=== PATIENT | male | born 1960 | race Caucasian/White ===

== ENCOUNTER 2022-07-30 09:43 | Outpatient (CLI) | payer OTHER ==
[2022-07-30 19:06] VITALS: BP 142/80
--- NOTE | 2022-07-30 19:06 | SLEEP CARE CONSULTATION ---
Information from patient questionnaire entered by Eriberto Isabel. I have reviewed and concur with the information entered by Eriberto Isabel. This document represents the service I personally performed and the decisions made by me, Teodoro Daley MD, [facility]. History of Present Illness Service Date and Time: 07/30/2022 0943 Reason for Visit: New patient Chief Complaint: reports: Insomnia, Other (UPDATE SUPPLIES) Date of Onset: 07/2019 Usual bedtime: 930-10PM Time it takes to fall asleep: 10-15MIN Snores at night: No Observed to quit breathing while asleep: No Sleeps alone due to snoring: No Number of times waking at night: 5-6 Reasons for waking at night: reports: Other (SPOUSE MOVING OR TUBING ISSUE ) Toss, Turn, or Twitch while sleeping: Yes Recalls having dreams: Yes Usually gets out of bed at: 3475-3146 Feels refreshed in the morning: Yes Morning headache: No Sleepy or fatigued during the day: Yes Ever fallen asleep while driving: No Takes day naps: No Prior sleep studies: Yes (2019 [facility]) Additional HPI information: IMPRESSION: 1. Obstructive Sleep Apnea-Hypopnea Syndrome, as suggested by history of loud and irregular snoring, observed cessation of breath while asleep, frequent awakenings during the night, nocturnal choking, unrefreshed sleep, and daytime hypersomnolence. Narrow oropharynx and obesity are common predisposing factors for obstructive sleep apnea-hypopnea syndrome. I recommend proceeding to polysomnography to confirm the diagnosis and to assess severity. If he has significant sleep disordered breathing, a manual CPAP titration study will also be performed to find the optimal treatment pressure. I informed the patient of what the sleep studies involve and after some discussion, he would like to first try a home sleep apnea test (HSAT) because he is claustrophobic and suspects that he will have trouble sleeping in a small room here. Plan: 1. Schedule a home sleep apnea test (HSAT) and return in 1 to 2 weeks after the study to discuss result and initiate therapy. 2. Avoid long distance driving or when feeling sleepy. 3. Avoid alcohol, sedative and muscle relaxant around bedtime. 4. Attempt to lose weight. - Parasomnia Symptoms Ever been unable to move upon waking from sleep: No Walks in sleep: No Talks in sleep: No Ever acted out dreams in sleep: No Ever felt weak in the knees when startled or emotional: No Bothered by creepy, crawly, restless sensations in legs: No Problems with memory or concentration: Yes Subjective Initial Alex Sleepiness Scale score: 5 (07/27/22) Past Medical History Past Medical History: reports: Hypertension, Anxiety, Other (HYPERLIPIDEMIA D3 DEFICIT ) Social History The patient's occupation is a [employer]. Patient is and lives in . Have you smoked in the past 12 months: No Years of smokin Quit date: 1994 Alcohol use: Yes Alcohol amount and frequency: 1-2 DAILY Caffeine use: Yes Caffeine amount and frequency: 1-2 MORNINGS ONLY Family History Family history of sleep disordered breathing: Yes Family Hx Sleep Apnea: Sibling: Snoring, Sleep apnea - Untreated Allergies and Home Medications Known drug allergies: No Drug allergies reviewed: Yes Home medication list reviewed: Yes Review of Systems Weight gain over past 5 years: 12-15 Cardiovascular: reports: high blood pressure Respiratory: denies: shortness of breath, wheeze, sputum production, chronic cough, other Gastrointestinal: denies: heartburn, difficulty swallowing, nausea, vomitting, diarrhea, abdominal pain, other Urinary: denies: incontinence, frequency, urgency, impotence, other Neurological: reports: head trauma Psychiatric: reports: anxiety, other (PTSD) Ear/Nose/Throat: reports: sinus problems, wisdom teeth removed Endocrine: denies: thyroid disease, history of goiter, sluggishness, too hot or cold, excessive thirst, increased appetite, increased urination, unexplained weakness, other Musculoskeletal: denies: joint pain, neck pain, back pain, joint swelling, muscle pain or cramping, mobility problems, other Immunologic: reports: sneezing Physical Exam Vital signs obtained and entered by: ERIBERTO Lopez MA Blood Pressure: 142/80 (LEFT ARM) Cuff size: regular Heart Rate: 69 O2 Saturation: 97 Height: 5 ft 11 in Weight: 183 lb 3.2 oz Body Mass Index: 25.5 BMI Classification: Overweight Neck circumference: 16.5 HEENT: No craniofacial malformation Nostrils: partially obstructed Turbinates: normal Septum: deviated right Mouth and throat: normal Soft palate: normal Hard palate: normal Uvula: normal Uvula visualization: 100% Mallampati Class I Tongue: normal in size Tonsils: small Chin and jaw: normal size and position Neck: normal w/o lymphadenopathy or thyromegaly Heart: regular rate and rhythm Lungs: clear bilaterally Extremities: no edema or clubbing Neurologic: intact Impression and Plan Visit Type: In Office Provider Statement: I spent 100% of the Face to Face Visit with the patient with greater than 50% spent counseling the patient and coordination of care.
== END 2022-07-30 09:44 | disposition home or self-care (01) ==
LOC: SC 09:43
PROVIDERS: ATTEND Nurse Practitioner Family
DX: G47.33 Obstructive sleep apnea (adult) (pediatric) (principal)
CPT/HCPCS: 99202; 99212